=== PATIENT | male | born 1990 | race Caucasian/White ===

== ENCOUNTER 2018-10-12 17:34 | Emergency (ER) | payer OTHER ==
[2018-10-12 18:24] LABS: ADD MAN DIFF? NO
[2018-10-12 18:34] LABS: BASOPHIL # 0.1 10^3/ul (0.0-0.1); BASOPHILS % 0.6 % (0.0-2.0); EOSINOPHILS # 0.1 10^3/ul (0.0-0.5); EOSINOPHILS % 0.4 % (0.0-7.0); HEMATOCRIT 42.4 % (42.0-52.0); HEMOGLOBIN 13.7 g/dl (14.0-18.0); LYMPHOCYTES # 1.4 10^3/ul (0.8-2.9); LYMPHOCYTES % 12.1 % (15.0-51.0); MEAN CORPUSCULAR HEMOGLOBIN 27.2 pg (29.0-33.0); MEAN CORPUSCULAR HGB CONC 32.3 g/dl (32.0-37.0); MEAN CORPUSCULAR VOLUME 84.3 fl (82.0-101.0); MEAN PLATELET VOLUME 10.1 fl (7.4-10.4); MONOCYTE # 1.1 10^3/ul (0.3-0.9); MONOCYTES % 9.7 % (0.0-11.0); NEUTROPHIL # 8.7 10^3/ul (1.6-7.5); NEUTROPHILS % 76.8 % (39.0-77.0); PLATELET COUNT 314 10^3/UL (140-415); RED BLOOD COUNT 5.03 10^6/ul (4.70-6.10); RED CELL DISTRIBUTION WIDTH 13.1 % (11.5-14.5)
[2018-10-12 18:34] LABS: WHITE BLOOD COUNT 11.3 10^3/ul (4.8-10.8)
[2018-10-12 18:40] LABS: ADD UMIC YES; UR ASCORBIC ACID NEGATIVE (NEGATIVE); UR BILIRUBIN (Dip) NEGATIVE (NEGATIVE); UR BLOOD (Dip) 1+ mg/dL (NEGATIVE); UR CLARITY SLIGHTLY CLOUDY (CLEAR); UR COLOR YELLOW (YELLOW); UR GLUCOSE (Dip) NEGATIVE (NEGATIVE); UR KETONES (Dip) NEGATIVE (NEGATIVE); UR LEUKOCYTE ESTERASE (Dip) NEGATIVE Leu/ul (NEGATIVE); UR MUCUS MANY /HPF (NONE SEEN); UR NITRITE (Dip) NEGATIVE (NEGATIVE); UR RBC 1 /HPF (0-5); UR TOTAL PROTEIN (Dip) NEGATIVE (NEGATIVE); UR UROBILINOGEN (Dip) NEGATIVE (NEGATIVE); UR WBC 1 /HPF (0-5)
[2018-10-12 18:54] LABS: ALANINE AMINOTRANSFERASE 115 IU/L (13-69); ALBUMIN/GLOBULIN RATIO 1.35; ALKALINE PHOSPHATASE 93 IU/L (42-121); ANION GAP 14 (5-13); ASPARTATE AMINO TRANSFERASE 60 IU/L (15-46); BILIRUBIN,INDIRECT 0.6 mg/dl (0-1.1); BILIRUBIN,TOTAL 0.6 mg/dl (0.2-1.3); BLOOD UREA NITROGEN 9 mg/dl (7-20); CALCIUM 10.2 mg/dl (8.4-10.2); CARBON DIOXIDE 26 mmol/L (21-31); CHLORIDE 101 mmol/L (97-110); CREATININE 0.82 mg/dl (0.61-1.24); Estimated GFR > 60 mL/min (>60); GLUCOSE 116 mg/dl (70-220); LIPASE 40 U/L (23-300); POTASSIUM 4.2 mmol/L (3.5-5.1); SODIUM 141 mmol/L (135-144); TOTAL PROTEIN 8.7 g/dl (6.1-8.1)
[2018-10-12] MEDS: KETOROLAC 60 MG INJ IM (22:52)
[2018-10-12] MEDS: ONDANSETRON (ODT) 4 MG TAB ODT (23:18)
== END 2018-10-12 23:42 | disposition home or self-care (01) ==
LOC: FTE 23:42
DX: J98.11 Atelectasis (principal); R07.2 Precordial pain
CPT/HCPCS: 36415; 71045; 74176; 80053; 81001; 83690; 85025; 93005; 96372; 99285-25